=== PATIENT | female | born 1955 | race Caucasian/White ===

== ENCOUNTER 2017-06-12 10:22 | Outpatient (RCR) | payer BC ==
[2017-06-04 13:27] LABS: PLATELET COUNT, AUTOMATED 241 K/uL (150-450)
[2017-06-04 15:55] VITALS: BP 148/85
[~2017-06-12 10:22] MED LIST: ALLO100T70 PO; AMBIEN; ASPI-1471 PO; ATOR10TA24 PO; ATOR10TA65 PO; AVAPRO; BUPXL150 PO; BUTA1CAP36 PO; CALC200T27 PO; CEFU500T50 PO; CLOP75TA43 PO; DARVOCET; EFFEXOR; ESCI20TA38 PO; FEXO180T74 PO; FLU150 FT; FLU20 PO; GUAI-545 PO; HCTZ; HYDR-2966 PO; HYDR-385 PO; IPRA15SP7 NS; KET10 PO; LACT1CAP9 PO; LEVO150T72 PO; LEVO150T78 PO; LEVOXYL; LISI-1 PO; LISI-362 PO; LISI20TA29 PO; LOR1 PO; LORA-1081 PO; LORA-1455 PO; METO-253 PO; METO200T33 PO; MULT-820 PO; OMEG500C7 PO; ONDA4TAB PO; OXY5 PO; OXYC5TAB38 PO; PANT40TA65 PO; PER PO; POLY119P24 PO; PRA20 PO; PRAV40TA78 PO; PRED-1 PO; PRED20TA6 PO; PYRI100T59 PO; RANI-325 PO; RANI75TA5 PO; SCOT TD; TOPROL; TRA50 PO; TRAM-420 PO; TRAMADOL; TRIA-19 PO; TRIA1CAP85 PO; VENL37.594 PO; VER40 PO; VERA120T14 PO; VYTORIN; XANAX; [UNRECOGNIZED DRUG - CODE] PO; [UNRECOGNIZED DRUG - OTHER]
[2017-06-12] MEDS ORDERED: METF-411 PO (10:33)
[2017-06-12] MEDS ORDERED: LOSA-51 PO (10:33)
[2017-06-12] MEDS ORDERED: ESCI10TA8 PO (10:33)
--- NOTE | 2017-06-12 17:08 | ONCOLOGY FOLLOW UP NOTE ---
EVENT DATE: June 12, 2017 DIAGNOSES 1. 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 2. Hypertension. 3. Hypercholesterolemia. 4. Migraine. 5. History of cerebrovascular accident on aspirin. CHIEF COMPLAINT The patient is here today for followup of her right ovarian endometrioid adenocarcinoma. ONCOLOGY HISTORY The patient is a 62-year-old female who presented with pain in the right lower quadrant of the abdomen. The patient has been seen by her system analyst who noticed a mass in the right lower quadrant. She had a CT of the abdomen and pelvis done on April 24, 2014, which revealed 17.5 mass with diverticulosis, small ascites, and lymphadenopathy. The patient ended up having debulking surgery with total abdominal hysterectomy, bilateral salpingo-oophorectomy, and pelvic aortic lymphadenectomy and omentectomy done on May 08, 2014. Pathology came back positive from the right ovary for 18 cm endometrioid adenocarcinoma, FIGO grade 1. From the left ovary, there was 6.5 cm atypical proliferation ( borderline seromucinous tumor). Appendectomy revealed metastatic endometrioid carcinoma involving the appendiceal wall similar to the right ovarian primary. Omentum was negative for malignancy. The uterus and cervix with the hysterectomy were negative for malignancy. Five lymph nodes from the left pelvic dissection, 6 lymph nodes from the right pelvic dissection, and 4 lymph nodes from the paraaortic dissection all came back negative for malignancy. Tumor was staged as a stage IIIB (pT3b pN0 pMna) from the right endometrioid ovarian carcinoma, while, from the left ovarian borderline ovarian carcinoma, the stage was stage IIA (pT2a pN0 pMna). The patient started adjuvant chemotherapy with carboplatin and Taxol on June 08, 2014. The patient completed six cycles of chemotherapy with carboplatin and Taxol on September 21, 2014. HISTORY OF PRESENT ILLNESS Patient is here today for followup of her right ovarian endometrioid carcinoma. She has some sweating lately. She has also shortness of breath. She has pain in her legs bilaterally. She has also occasional headache. Patient has been evaluated lately for raised transaminases. PAST MEDICAL HISTORY 1. Hypertension. 2. Cerebrovascular accident. 3. Hypercholesterolemia. 4. Hypothyroidism. 5. Migraine headache. 6. Anemia. PAST SURGICAL HISTORY Debulking surgery for ovarian carcinoma on May 08, 2014. FAMILY HISTORY Mother had breast cancer and uterine cancer in her 30s and 40s. Father had prostate cancer in his 70s. Maternal aunt with breast cancer in her late 40s. SOCIAL HISTORY The patient is a . She does not have children. She works for a print shop. She denies any abuse of tobacco, alcohol, or drugs. CURRENT MEDICATIONS 1. Oxycodone 5 mg as needed q.6h. 2. Protonix 40 mg once daily. 3. Verapamil 120 mg twice daily. 4. Polyethylene glycol (Miralax) 119 mg orally daily. 5. Multivitamin once daily. 6. Lisinopril 20 mg twice daily. 7. [place] 3 fatty acid 500 mg daily. 8. Calcium citrate 200 mg daily. 9. Aspirin 81 mg daily. 10. Levothyroxine 150 mcg tablet daily. ALLERGIES NSAID with upset stomach, SULFA with upset stomach. REVIEW OF SYSTEMS CONSTITUTIONAL: She has some sweating. HEENT: Ears: No tinnitus or hearing problem. Nose: No nasal discharge or epistaxis. Throat: No sore throat or mouth ulcers. Eyes: No diplopia or visual changes. RESPIRATORY: She is short winded especially on exertion. CARDIOVASCULAR: No chest pain, orthopnea, or paroxysmal nocturnal dyspnea (PND) . She has edema. No palpitations. GASTROINTESTINAL: No nausea or vomiting. No diarrhea or constipation. No change in bowel movements. No heartburn or swallowing difficulties. No abdominal pain. No jaundice. No hematemesis, melena or rectal bleeding. GENITOURINARY: No hematuria or dysuria. MUSCULOSKELETAL: She has pain in her legs bilaterally. NEUROLOGICAL: She has headache. HEMATOLOGIC/LYMPHATIC: No bleeding or easy bruising. No weakness or fatigue. No enlarged lymph nodes. SKIN: No skin rash or lumps. PSYCHIATRIC: No anxiety or depression. PHYSICAL EXAMINATION GENERAL: Looks stable. Well-developed, well-nourished, and in no acute distress. VITAL SIGNS: Blood pressure 173/104, pulse 86 per minute, respirations 16 per minute, temperature 97. Pulse ox 92% on room air. HEENT: Head: Atraumatic. No sinus tenderness to palpation. Eyes: No icterus or conjunctivitis. Mouth and throat: No oral thrush or mucositis. NECK: Supple. No cervical or supraclavicular lymphadenopathy. LUNGS: Clear to auscultation and percussion bilaterally. HEART: Regular rate and rhythm. No gallops, murmurs, clicks or rubs. ABDOMEN: Soft and lax. Scar of recent surgery is noted and healed well. No masses could be appreciated. EXTREMITIES: There is mild edema bilaterally. LYMPHATICS: No peripheral lymphadenopathy. NEUROLOGICAL: Conscious, alert and oriented times three. No focal motor or sensory deficits. PSYCHIATRIC: Mood and affect appear normal. SKIN: No skin rash, bruise or purpuric eruption. DIAGNOSTIC DATA CBC showed a white count of 8, hemoglobin 15.5, hematocrit 43.7, platelets 241, 000. Chem panel totally normal except carbon dioxide 20, blood sugar 116, AST 51, ALT 73. CA-125 is normal at 20. ASSESSMENT 1. Stage IIIB (pT3b pN0 M0) right ovarian endometrioid adenocarcinoma status post debulking surgery done May 08, 2014 followed by adjuvant chemotherapy with six cycles of adjuvant chemotherapy with carboplatin and Taxol between June 08, 2014 through September 21, 2014. She is currently in complete remission. Her CA-125 is 20, which is normal and stable. Prior to her adjuvant chemotherapy her CA-125 was 74. The patient is doing very well currently. I am planning to continue followup. I will see her again in three months with CBC , chem panel and CA-125. 2. 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 No further treatment is required. 3. Elevated liver enzymes with ultrasound of the liver all suggestive of fatty liver. Her liver enzymes are mildly elevated, but stable. 4. History of cerebrovascular accident. 5. History of migraine headache. PLAN 1. Continue followup. 2. Patient to return in three months with CBC, chem panel and CA-125. 3. Patient is to contact us for any new concern or complaints. RELLD
== END 2017-08-31 ==
LOC: ONC 10:22
PROVIDERS: ATTEND Internal Medicine Hematology
DX: Z85.42 Personal history of malignant neoplasm of other parts of uterus (principal); Z92.21 Personal history of antineoplastic chemotherapy; Z86.73 Personal history of transient ischemic attack (TIA), and cerebral infarction without residual deficits; I10 Essential (primary) hypertension; E78.00 Pure hypercholesterolemia, unspecified; R06.02 Shortness of breath; Z79.899 Other long term (current) drug therapy; Z79.82 Long term (current) use of aspirin
CPT/HCPCS: 36415; 82040; 82247; 82310; 82374; 82435; 82565; 82947; 84075; 84132; 84155; 84295; 84450; 84460; 84520; 85025; 86304; 99212

== ENCOUNTER → 2017-06-26 | Outpatient (CLI) | payer BC ==
[~2017-06-26] MED LIST changes: +ESCI10TA8 PO; +LOSA-51 PO; +METF-410 PO
--- NOTE | 2017-06-26 08:30 | RADIOLOGY IMAGING REPORT ---
FACILITY: [facility] PATIENT NAME: Kristin Perera : 1955 MR: [id number] V: [id number] EXAM DATE: ORDERING PHYSICIAN: EUSEBIO VALENCIA TECHNOLOGIST: Location: [facility] Patient: Kristin Perera : 1955 Visit/Account:[id number] Date of Sevice: 06/26/2017 EXAMINATION: Head CT without intravenous contrast HISTORY: Dizziness headache stroke three years ago TECHNIQUE: Contiguous axial images were obtained from the skull base to the vertex without intraven ous contrast. Sagittal and coronal reformatted images are also submitted. Dose Lowering Technique One of the following dose optimization techniques was utilized in the performance of this exam: Autom ated exposure control; adjustment of the mA and/or kV according to the patient's size; or use of an i terative reconstruction technique. Specific details can be referenced in the facility's radiology C T exam operational policy. COMPARISON: August 21, 2013 FINDINGS: Brain volume: Normal. Ventricles: Normal. Acute ischemic changes: There is a wedge-shaped area of decreased attenuation in the peripheral post erior left parietal occipital lobe with no significant mass effect on the adjacent atria of the left lateral ventricle. This likely represents an old watershed type infarct. Hemorrhage: None. Masses / edema: None. Griggs-white: Negative. White matter: Normal. Vessels: Negative. Extra-axial: Negative. Calvarium / scalp: Negative. Skull base / visualized face: Negative. Visualized sinuses / orbits: There are small air-fluid levels in the maxillary sinuses bilaterally a nd a mucous retention cyst versus other polypoid lesion in the left maxillary sinus IMPRESSION: There is a wedge-shaped area of decreased attenuation the peripheral posterior left parietal occipita l lobe with no associated mass effect on the adjacent atria of the left lateral ventricle. This like ly represents an old watershed type infarct. If patient does have acute symptoms however an MR of th e brain with and without contrast is recommended for further evaluation and to exclude acute ischemia and/or a mass lesion Small air-fluid levels in the maxillary sinuses bilaterally suggestive of acute sinusitis Small mucous retention cyst versus other polypoid lesion in the left maxillary sinus Report Dictated By: Silvia Veras MD at 06/26/2017 8:20 AM Report E-Signed By: Silvia Veras MD at 06/26/2017 8:26 AM [id number]:[email or web address]
--- NOTE | 2017-06-26 15:55 | RADIOLOGY IMAGING REPORT ---
FACILITY: [facility] [place] PATIENT NAME: ELEANOR RITCHIE : [id number] MR: [id number] V: [id number] EXAM DATE: [id number] ORDERING PHYSICIAN: EUSEBIO VALENCIA TECHNOLOGIST: Sandi Zamarripa PROCEDURE:BILATERAL DIGITAL SCREENING MAMMOGRAM WITH CAD ASSISTED INTERPRETATION & 3D TOMOSYNTHESIS COMPARISON:Prior mammograms 03/06/15, 02/27/15, 09/28/13. INDICATIONS:SCREENING FINDINGS: Moderately dense mildly heterogeneous fibroglandular tissue is seen throughout the breasts. The parenchymal pattern has remained stable allowing for difference in mammographic technique & patient positioning. There is no evidence of malignant appearing mass, malignant appearing calcifications or other secondary sign of malignancy in either breast. DIAGNOSTIC CATEGORY 1--NEGATIVE. RECOMMENDATIONS: ROUTINE MAMMOGRAM AND CLINICAL EVALUATION. IMPRESSION: BIRADS 1: Negative No significant abnormality is seen. Dictated by: Silvia Veras M.D. on 06/26/2017 at 10:09 Transcribed by: LAVELLE on 06/26/2017 at 10:23 Approved by: Silvia Veras M.D. on 06/26/2017 at 15:54 [facility]
== END ==
LOC: MAMO 06:05
PROVIDERS: ATTEND Family Medicine
DX: Z12.31 Encounter for screening mammogram for malignant neoplasm of breast (principal); J32.0 Chronic maxillary sinusitis; R94.02 Abnormal brain scan
CPT/HCPCS: 70450; 77063; 77067

== ENCOUNTER 2017-09-17 10:26 | Outpatient (RCR) | payer BC ==
[2017-09-11 10:29] VITALS: BP 147/93
[2017-09-11 10:44] LABS: PLATELET COUNT, AUTOMATED 232 K/uL (150-450)
[~2017-09-17 10:26] MED LIST changes: -METF-410 PO; +METF-411 PO
[2017-09-17 10:40] VITALS: BP 156/98
--- NOTE | 2017-09-17 16:16 | ONCOLOGY FOLLOW UP NOTE ---
EVENT DATE: September 17, 2017 DIAGNOSES 1. Stage IIIB ([id number]) right ovarian endometrioid adenocarcinoma. 2. Hypertension. 3. Hypercholesterolemia. 4. Migraine. 5. History of cerebrovascular accident on aspirin. CHIEF COMPLAINT The patient is here today for followup of her right ovarian endometrioid adenocarcinoma. ONCOLOGY HISTORY The patient is a 62-year-old female who presented with pain in the right lower quadrant of the abdomen. The patient has been seen by her cracker sprayer who noticed a mass in the right lower quadrant. She had a CT of the abdomen and pelvis done on April 24, 2014, which revealed 17.5 mass with diverticulosis, small ascites, and lymphadenopathy. The patient ended up having debulking surgery with total abdominal hysterectomy, bilateral salpingo-oophorectomy, and pelvic aortic lymphadenectomy and omentectomy done on May 08, 2014. Pathology came back positive from the right ovary for 18 cm endometrioid adenocarcinoma, FIGO grade 1. From the left ovary, there was 6.5 cm atypical proliferation ( borderline seromucinous tumor). Appendectomy revealed metastatic endometrioid carcinoma involving the appendiceal wall similar to the right ovarian primary. Omentum was negative for malignancy. The uterus and cervix with the hysterectomy were negative for malignancy. Five lymph nodes from the left pelvic dissection, 6 lymph nodes from the right pelvic dissection, and 4 lymph nodes from the paraaortic dissection all came back negative for malignancy. Tumor was staged as a stage IIIB (pT3b pN0 pMna) from the right endometrioid ovarian carcinoma, while, from the left ovarian borderline ovarian carcinoma, the stage was stage IIA (pT2a pN0 pMna). The patient started adjuvant chemotherapy with carboplatin and Taxol on June 08, 2014. The patient completed six cycles of chemotherapy with carboplatin and Taxol on September 21, 2014. HISTORY OF PRESENT ILLNESS Patient is here today for followup of her right ovarian endometrioid carcinoma. She has some sweating sometimes. She has exertional shortness of breath. She has some vague pain in the right lower quadrant of the abdomen sometimes. She has some symptoms suggestive of urinary tract infection currently. She has occasional headache. PAST MEDICAL HISTORY 1. Hypertension. 2. Cerebrovascular accident. 3. Hypercholesterolemia. 4. Hypothyroidism. 5. Migraine headache. 6. Anemia. PAST SURGICAL HISTORY Debulking surgery for ovarian carcinoma on May 08, 2014. FAMILY HISTORY Mother had breast cancer and uterine cancer in her 30s and 40s. Father had prostate cancer in his 70s. Maternal aunt with breast cancer in her late 40s. SOCIAL HISTORY The patient is a . She does not have children. She works for a print shop. She denies any abuse of tobacco, alcohol, or drugs. CURRENT MEDICATIONS 1. Oxycodone 5 mg as needed q.6h. 2. Protonix 40 mg once daily. 3. Verapamil 120 mg twice daily. 4. Polyethylene glycol (Miralax) 119 mg orally daily. 5. Multivitamin once daily. 6. Lisinopril 20 mg twice daily. 7. [place] 3 fatty acid 500 mg daily. 8. Calcium citrate 200 mg daily. 9. Aspirin 81 mg daily. 10. Levothyroxine 150 mcg tablet daily. ALLERGIES NSAID with upset stomach, SULFA with upset stomach. REVIEW OF SYSTEMS CONSTITUTIONAL: The patient has some sweating. HEENT: Ears: No tinnitus or hearing problem. Nose: No nasal discharge or epistaxis. Throat: No sore throat or mouth ulcers. Eyes: No diplopia or visual changes. RESPIRATORY: She has shortness of breath. CARDIOVASCULAR: No chest pain, orthopnea, or paroxysmal nocturnal dyspnea (PND) . She has edema. No palpitations. GASTROINTESTINAL: No nausea or vomiting. No diarrhea or constipation. No change in bowel movements. No heartburn or swallowing difficulties. She has right lower quadrant abdominal pain No jaundice. No hematemesis, melena or rectal bleeding. GENITOURINARY: She has symptoms suggestive of a urinary tract infection. MUSCULOSKELETAL: She has pain in her legs bilaterally. NEUROLOGICAL: She has occasional headache. HEMATOLOGIC/LYMPHATIC: No bleeding or easy bruising. No weakness or fatigue. No enlarged lymph nodes. SKIN: No skin rash or lumps. PSYCHIATRIC: No anxiety or depression. PHYSICAL EXAMINATION GENERAL: Looks stable. Well-developed, well-nourished, and in no acute distress. VITAL SIGNS: Blood pressure 156/98, pulse 93 per minute, respirations 16 per minute, temperature 97.4. Pulse ox 93% on room air. HEENT: Head: Atraumatic. No sinus tenderness to palpation. Eyes: No icterus or conjunctivitis. Mouth and throat: No oral thrush or mucositis. NECK: Supple. No cervical or supraclavicular lymphadenopathy. LUNGS: Clear to auscultation and percussion bilaterally. HEART: Regular rate and rhythm. No gallops, murmurs, clicks or rubs. ABDOMEN: Soft and lax. Scar of recent surgery is noted and healed well. No masses could be appreciated. EXTREMITIES: There is mild edema bilaterally. LYMPHATICS: No peripheral lymphadenopathy. NEUROLOGICAL: Conscious, alert and oriented times three. No focal motor or sensory deficits. PSYCHIATRIC: Mood and affect appear normal. SKIN: No skin rash, bruise or purpuric eruption. DIAGNOSTIC DATA CBC showed a white count of 8.7, hemoglobin 16.4, hematocrit 46.9, platelets 232 ,000. Chem panel totally normal except carbon dioxide 19, blood sugar 136, AST 146, ALT 176, total protein 8.5. CA-125 is normal at 13. ASSESSMENT 1. Stage IIIB (pT3b pN0 M0) right ovarian endometrioid adenocarcinoma status post debulking surgery done May 08, 2014 followed by adjuvant chemotherapy with six cycles of adjuvant chemotherapy with carboplatin and Taxol between June 08, 2014 through September 21, 2014. She is currently in complete remission. Her CA-125 is 13, which is normal and stable. Prior to her adjuvant chemotherapy her CA-125 was 74. I am planning to see her again in four months with CBC, chem panel and CA-125. 2. 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 No further treatment is required. 3. Elevated liver enzymes which are getting worse. Ultrasound of the liver was suggestive of fatty liver, but with deterioration of her liver enzymes,I am planning to get a CT abdomen and pelvis with IV and oral contrast for further evaluation. 4. History of cerebrovascular accident. 5. History of migraine headache. PLAN 1. CT abdomen and pelvis with IV and oral contrast. 2. UA and culture and sensitivity. 3. Patient to return in one week for further evaluation and management. 4. Patient is to contact us for any new concern or complaints. MTDD
[2017-09-18] MEDS ORDERED: IOPAMIDOL 76% 100 ML INFUS BTL 100 ML ONE (14:30)
[2017-09-18] MEDS ORDERED: DIATRIZOATE MEGL/DIATRIZOA SOD 367 MG/ML SOLN ONE ×2 (14:35→14:37)
--- NOTE | 2017-09-18 17:08 | RADIOLOGY IMAGING REPORT ---
FAC[place]: [facility] [place] PATIENT NAME: Krisitn Perera : 1955 MR: [id number] V: [id number] EXAM DATE: ORDERING PHYSICIAN: DONTAE MACE TECHNOLOGIST: Location: [facility] Patient: Kristin Perera : 1955 Visit/Account:[id number] Date of Sevice: 09/18/2017 ABDOMEN/PELVIS WITH CONTRAST Provided history: Ovarian cancer. Other liver enzymes. Additional pertinent history: none TECHNIQUE: Spiral scan was obtained from the lower chest through the symphysis with intravenous cont rast Contrast dose: 85 mL Isovue 370 intravenously. Source images were reformatted in the coronal and sagittal planes. Additional series performed today: none One of the following dose optimization techniques was utilized in the performance of this exam: Autom ated exposure control; adjustment of the mA and/or kV according to the patient's size; or use of an i terative reconstruction technique. Specific details can be referenced in the facility's radiology CT exam operational policy. COMPARISON STUDIES: CT 04/24/14 FINDINGS: Lower chest: Negative Liver/biliary: Advanced diffuse hepatic steatosis. Smooth surface. No focal hepatic lesion. Gallbl adder and bile ducts negative. No vascular thromboses. Pancreas: Negative Spleen: Negative Adrenal glands: Negative Kidneys / ureters / bladder / genitourinary / retroperitoneum: Kidneys, ureters and bladder are lachelle l. Interim removal large mass from the pelvis as well as hysterectomy. Currently, no pelvic mass an d no free fluid. No adenopathy. Bowel / peritoneum / mesenteries: Large diverticula of the sigmoid colon. No signs of diverticulitis . No free fluid and no free air. Small bowel negative. Scattered small mesenteric lymph nodes are very likely benign. There are no measurable peritoneal based nodules. There is however indistinct nodular infiltration o f the midline greater omentum concerning for potential malignancy though could merely reflect scar fr om the prior surgery. There is no ascites. Vessels: Moderate calcified plaque lower abdominal aorta. No aneurysm. Lymph nodes: negative Body wall: Small noninflamed fat-containing lower anterior abdominal wall hernia just below the umbil icus. No bowel herniation. Bones: Stable enostosis left capital femoral epiphysis. No concerning lytic or blastic bone lesion. Remodeling posterior right rib fracture new from prior, benign in appearance. IMPRESSION: 1. The only finding concerning for potential metastatic ovarian cancer is indistinct reticular nodul ar infiltration of the midline greater omental fat. Follow-up imaging warranted. 2. No evidence of metastatic disease to the liver. There is advanced diffuse hepatic steatosis. 3. Additional chronic benign findings per above. Report Dictated By: Ashkan Boyd MD at 09/18/2017 4:53 PM Report E-Signed By: Ashkan Boyd MD at 09/18/2017 5:04 PM WSN:[email or web address]
[2017-09-21] MEDS ORDERED: LEVO-85 PO (11:00)
== END 2017-11-06 11:05 | disposition home or self-care (01) ==
LOC: ONC 10:26
PROVIDERS: ATTEND Internal Medicine Hematology
DX: C56.1 Malignant neoplasm of right ovary (principal); Z92.21 Personal history of antineoplastic chemotherapy; R79.89 Other specified abnormal findings of blood chemistry; I10 Essential (primary) hypertension; E78.00 Pure hypercholesterolemia, unspecified; Z86.73 Personal history of transient ischemic attack (TIA), and cerebral infarction without residual deficits; Z79.899 Other long term (current) drug therapy; R06.02 Shortness of breath; K76.0 Fatty (change of) liver, not elsewhere classified
CPT/HCPCS: 36415; 74177; 81001; 85025; 86304; 87077; 87088; 87186; 99212; Q9967; 82040; 82247; 82310; 82374; 82435; 82565; 82947; 84075; 84132; 84155; 84295; 84450; 84460; 84520

== ENCOUNTER 2017-11-18 10:00 | Outpatient (RCR) | payer BC ==
[~2017-11-18 10:00] MED LIST changes: +LEVO-85 PO; -METF-411 PO; +METF-450 PO
[2017-11-18 10:02] VITALS: BP 159/96
[2017-11-18] MEDS ORDERED: MOM PO (10:37)
[2017-11-18] MEDS ORDERED: LEVO-85 PO (10:51)
--- NOTE | 2017-11-18 11:44 | Oncology Progress Note ---
History of Present Illness Evaluation Evaluation Date: Nov 18, 2017 Evaluation Time: 10:00 Primary Care Provider Primary Care Provider: Tabitha Pepe MD Accompanied by Accompanied by: Self Last seen by : Rudy 09/17/17 Chief Complaint Chief Complaint follow up of her right ovarian endometrioid adenocarcinoma Oncology History Oncology History The patient is a 62-year-old female who presented with pain in the right lower quadrant of the abdomen. The patient has been seen by her plumbing hardware assembler who noticed a mass in the right lower quadrant. She had a CT of the abdomen and pelvis done on April 24, 2014, which revealed 17.5 mass with diverticulosis, small ascites, and lymphadenopathy. The patient ended up having debulking surgery with total abdominal hysterectomy, bilateral salpingo-oophorectomy, and pelvic aortic lymphadenectomy and omentectomy done on May 08, 2014. Pathology came back positive from the right ovary for 18 cm endometrioid adenocarcinoma, FIGO grade 1. From the left ovary, there was 6.5 cm atypical proliferation (b orderline seromucinous tumor). Appendectomy revealed metastatic endometrioid carcinoma involving the appendiceal wall similar to the right ovarian primary. Omentum was negative for malignancy. The uterus and cervix with the hysterectomy were negative for malignancy. Five lymph nodes from the left pelvic dissection, 6 lymph nodes from the right pelvic dissection, and 4 lymph nodes from the paraaortic dissection all came back negative for malignancy. Tumor was staged as a stage IIIB (pT3b pN0 pMna) from the right endometrioid ovarian carcinoma, while, from the left ovarian borderline ovarian carcinoma, the stage was stage IIA (pT2a pN0 pMna). The patient started adjuvant chemotherapy with carboplatin and Taxol on June 08, 2014. The patient completed six cycles of chemotherapy with carboplatin and Taxol on September 21, 2014. Treatment Treatment The patient started adjuvant chemotherapy with carboplatin and Taxol on June 08, 2014. The patient completed six cycles of chemotherapy with carboplatin and Taxol on September 21, 2014. 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 s/p six cycles of chemotherapy with carboplatin and Taxol on September 21, 2014. Patient presents to cancer center for management of her diagnosis and some chronic symptoms. She reports reports having migraines, stomach upset triggered by excessive eating, she is now been trying acupuncture and gluten free diet, along with some dominican herbal remedies. She does still have anxiety and some depression, her recently . I recommended for her to see a counsellor she agrees with the plan. She is otherwise doing relatively well, except for Advanced diffuse hepatic steatosis showed on her recent imaging 09/2017 CT (abd/pelvis) and 11/2017 PET showed no malignant patterns. Patient is AAOX4, hemodynamically stable and afebrile, denies any cardiac type chest pain, no fevers at home, no night sweats, no chills, no spontaneous bleeding, no nausea, vomiting, diarrhea, occasional constipation, no dark stools .Oral intake appetite ok, patient has maintained baseline weight since initiating treatment, reports no changes in bowel or bladder pattern, no PND, no dizziness, or headaches nor blurry vision. Keeps active and on the go over 50% of the day. Significant PMHx of elevated liver enzymes which are getting worse; History of cerebrovascular accident; History of migraine headache. Living Conditions Lives with her bother and nephew Social/Occupational History Social History: Social History This is a 62 Yr old White female, she is M and has [] Children Hx Smoking: No Smoking Status: Never Smoker Exposure to Second Hand Smoke?: No Allergies & Medications Allergies: Coded Allergies: NSAIDS (Non-Steroidal Anti-Inflamma (Verified Allergy, Mild, GI DISTRESS, 02/14/15) Sulfa (Sulfonamide Antibiotics) (Verified Allergy, Mild, GI DISTRESS, 02/14/15) milk (Unverified Allergy, Unknown, 02/14/15) Milk Containing Products (Verified Adverse Reaction, Intermediate, NAUSEA/VOMITING, 02/14/15) Home Meds Active Scripts Magnesium Hydroxide (MILK OF MAGNESIA) 400 Mg/5 Ml Oral.susp, 400 MG PO 1-2XD for 14 Days, BOTTLE Prov:COMFORT RAINEY QUALITY CONTROL LAB TECHNICIAN-C, ONC 11/18/17 Lorazepam (ATIVAN) 0.5 Mg Tablet, 0.5 MG PO Q6H PRN for ANXIETY, #30 TAB 2 Refills Take 1 tab orally as needed for nausea or with anxiety Prov:OMAIRA REBOLLEDO QUALITY CONTROL LAB TECHNICIAN-BC, ONC 03/16/17 Hydrocodone Bit/Acetaminophen (HYDROCODON-ACETAMINOPHEN 5-325) 1 Each Tablet, 1 EACH PO Q4H PRN for PAIN, #30 Prov:OMAIRA REBOLLEDO Jimmy QUALITY CONTROL LAB TECHNICIAN-BC, ONC 08/23/14 Reported Medications Levofloxacin 500 Mg Tab (LEVAQUIN 500 MG TAB) 500 Mg Tablet, 250 MG PO DAILY, TAB daily for 10 days 11/18/17 Losartan/Hydrochlorothiazide (LOSARTAN-HCTZ 50-12.5 MG TAB) 1 Each Tablet, 1 EACH PO QDAY 06/12/17 Atorvastatin Calcium (LIPITOR) 10 Mg Tablet, 1 TAB PO QDAY, TAB 06/26/16 Hydrochlorothiazide (HYDROCHLOROTHIAZIDE) Unknown Strength Tablet, 1 TAB PO QDAY, TAB 11/22/15 Multivitamin (MULTIVITAMINS) 1 Each Tablet, 1 EACH PO DAILY 06/05/14 Independence-3 Fatty Acids (FISH OIL) 500 Mg Capsule, 500 MG PO DAILY, CAPSULE 11/24/13 Calcium Citrate (CALCIUM CITRATE) 200 Mg Tablet, 200 MG PO DAILY 11/24/13 Aspirin (ASPIR 81) 81 Mg Tablet.dr, 81 MG PO BID, TAB 11/24/13 Levothyroxine Sodium (LEVOTHYROXINE SODIUM) 150 Mcg Tablet, 150 MCG PO QDAY 08/21/13 Discontinued Reported Medications Levofloxacin 500 Mg Tab (LEVAQUIN 500 MG TAB) 500 Mg Tablet, 500 MG PO DAILY, T AB DAILY X 5 DAYS 09/21/17 Review of Systems Constitution: Positive for Appetite/Weight Change HEENT: EYES: Vision Change Gastrointestinal: Nausea, Abdominal Pain, Other Gentiourinary: Other Musculoskeletal: Bone Pain Hematological: Fatigue Psychiatric: Anxiety, Depression, Other Vital Signs Vital Signs Temperature: 96.8 Pulse: 89 BP Systolic: 159 BP Diastolic: 96 Respiratory Rate: 16 O2 SAT: 94 O2 Delivery: Room Air Height (feet) 5 Height (inches) 3.00 Weight lb: 207 Weight oz: 2.0 Weight Kg (Mak): 93.95 Pain: 0 ECOG- 0 Physical Exam General: Looks Stable, Well Developed, Well Nourished, Acute Distress HEENT: HEAD:Atraumatic Neck: Supple Lungs: Clear to Auscultation Heart: Regular Rate and Rhythm Abdomen: Soft and Nontender Extremities: Other Psychiatric: Mood appears normal, Affect appears normal Skin: No Skin Rashes, No Bruising, No Purpura, No Moist Desquamation, No Dry Desquamation, No Errythema, No Mild Errythema, No Moderate Errythema, No Severe Errythema, No Induration, No Other Breast: No No Masses, No No Nipple Discharge, No No Skin Changes, No Other Assessment and Plan Assessment and Plan Kristin Jaramillo is a 62 year old woman who has Stage IIIB ([id number]) right ovarian endometrioid adenocarcinoma, 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 s/p six cycles of chemotherapy with carboplatin and Taxol on September 21, 2014. Patient presents to cancer center for management of her diagnosis and some chronic symptoms. She reports reports having migraines, stomach upset triggered by excessive eating, she is now been trying acupuncture and gluten free diet, along with some dominican herbal remedies. She does still have anxiety and some depression, her recently . I recommended for her to see a counsellor she agrees with the plan. She is otherwise doing relatively well, except for Advanced diffuse hepatic steatosis showed on her recent imaging 09/2017 CT (abd/pelvis) and 11/2017 PET showed no malignant patterns. DIAGNOSTIC DATA Within acceptable parameters except elevated liver enzymes. Assessment/Plan 1. 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 The patient received six courses of adjuvant chemotherapy with carboplatin and Taxol between June 08, 2014 through September 21, 2014. Tumor marker with CA-125 dropped from 74 to 18 to 13, then 16 and now 18. The patient is doing very well post treatment with exception of her emotional state. She will follow in January with CBC, chem panel and CA-125. She continues to be in complete remission. 2. Left ovarian borderline seromucinous tumor, stage IIIA ([id number]) and no further treatment required, but the patient could benefit from the adjuvant treatment for her right ovarian endometrioid adenocarcinoma. 3. Positive family history for breast cancer and uterine cancer in her mother, sister and maternal aunt. BRCA1 and BRCA2 gene analysis were negative. 4. Elevated liver enzymes which are getting worse. Ultrasound of the liver was suggestive of fatty liver, Advanced diffuse hepatic steatosis showed on her recent imaging 09/2017 CT (abd/pelvis) and 11/2017 PET showed no malignant patterns. She is currently on a gluten free, and low fat diet, taking Tagamet, encouraged to increase exercise, and portion controlled. Hypertension, on treatment. 5. History of cerebrovascular accident. 6. Migraine headache. 7. Depression/ anxiety-She is still coping with the of her , she is doing well overall, currently taking Ativan for anxiety, oxycodone in the am for pain, seeing an maintenance team leader. encouraged patient to increase exercise activity, and will get her a referral to counsellor from [facility]. PLAN 1. Appointment with Dr. Grant in January 2018. Rn to schedule times and notify Patient. 2. The patient to return in January with CBC, chem panel, CA-125. 3. Recommend Counsellor appointment from [facility]. Rn to notify patient of appointment times. 4. patient to follow up with GLUE SIZE MACHINE OPERATOR and PCP prior to visit with Dr. Gomez. 5. Levaquin 250mg Po x 10 days for UTI. 6. Continue to monitor liver enzymes with labs due in January. 7. The patient to contact us for any new concerns or complaints. -Education, patient instructed to go to ER immediately and, or call Clinic if any Shortness of Breath, Temp >/=100.4, fevers, chills, cardiac type chest pain, bleeding, excessive bruising, headaches, blurry vision, dizziness, abdominal pain, difficulty swallowing, and pain unrelieved by medication, skin rashes, oozing wounds. TIME SPENT: 30 minutes 25 > minutes includes but not limited to discussion, counselling and co-ordination~ of care. Discussion with other health care providers, record review, review of lab work, diagnostic tests. Plan discussed extensively with patient. All the questions answered today. Thank you for the opportunity to be involved in the care of Kristin Jaramillo. Billing Level: Return visit 4 COMFORT RAINEY, ONC Nov 18, 2017 11:44
== END 2018-01-06 10:29 | disposition home or self-care (01) ==
LOC: ONC 10:00
PROVIDERS: ATTEND Nurse Practitioner Family
DX: C56.1 Malignant neoplasm of right ovary (principal); C78.5 Secondary malignant neoplasm of large intestine and rectum; Z80.3 Family history of malignant neoplasm of breast; Z80.8 Family history of malignant neoplasm of other organs or systems; I10 Essential (primary) hypertension; R74.8 Abnormal levels of other serum enzymes; G43.909 Migraine, unspecified, not intractable, without status migrainosus; F32.9 Major depressive disorder, single episode, unspecified; Z79.899 Other long term (current) drug therapy; Z92.21 Personal history of antineoplastic chemotherapy
CPT/HCPCS: 99212

== ENCOUNTER → 2018-02-25 | Outpatient (CLI) | payer BC ==
[~2018-02-25] MED LIST changes: +BARIUM SULFATE 176 GM BTL PO ONE; +BARIUM SULFATE 340 GM POWD ONE; +MOM PO; -RANI75TA5 PO; +RANI75TA51 PO; +TRAZ50TA34 PO
--- NOTE | 2018-02-25 15:27 | RADIOLOGY IMAGING REPORT ---
FACILITY: [facility] - [place] PATIENT NAME: Kristin Perera : 1955 MR: [id number] V: [id number] EXAM DATE: ORDERING PHYSICIAN: EUSEBIO VALENCIA TECHNOLOGIST: Location: [facility] - [place] Patient: Kristin Perera : 1955 Visit/Account:[id number] Date of Sevice: 02/25/2018 Exam type: UPPER GI SERIES W/O AIR History: GERD, cough, bronchitis to 3 times per year Comparison: None. Findings: Double contrast upper GI series was performed with thick and thin barium. There is a moderate size h iatal hernia with mild narrowing at the lower esophageal sphincter. There was a large amount of saul roesophageal reflux observed. There is mild mucosal irregularity along the anterior wall the cervica l esophagus. No abnormality of the stomach duodenal bulb or duodenal C-loop was seen. The Fluorosco py dose area product was 1037.51 micro-Griggs per meter squared IMPRESSION: 1. Moderate size hiatal hernia with a large amount of gastric esophageal reflux. There is mild narr owing at the lower esophageal sphincter and a mild mucosal irregularity along the anterior wall the c ervical esophagus. Endoscopy may be helpful Report Dictated By: Silvia Veras MD at 02/25/2018 3:21 PM Report E-Signed By: Silvia Veras MD at 02/25/2018 3:24 PM WSN:[email or web address]
== END ==
LOC: RAD 01:36
PROVIDERS: ATTEND Family Medicine
DX: K21.9 Gastro-esophageal reflux disease without esophagitis (principal); K44.9 Diaphragmatic hernia without obstruction or gangrene
CPT/HCPCS: 74240

== ENCOUNTER 2018-03-04 08:00 | Outpatient (RCR) | payer BC ==
[2018-02-18 08:35] VITALS: BP 159/104
[~2018-03-04 08:00] MED LIST changes: -BARIUM SULFATE 176 GM BTL PO ONE; -BARIUM SULFATE 340 GM POWD ONE
--- NOTE | 2018-03-04 08:43 | RADIOLOGY IMAGING REPORT ---
FACILITY: [facility] - [place] PATIENT NAME: Kristin Perera : 1955 MR: [id number] V: [id number] EXAM DATE: ORDERING PHYSICIAN: COMFORT RAINEY TECHNOLOGIST: Location: [facility] - [place], [place] Patient: Kristin Perera : 1955 Visit/Account:[id number] Date of Sevice: 03/04/2018 ABDOMEN/PELVIS WITH CONTRAST HISTORY: Restaging ovarian cancer, fatty liver TECHNIQUE: CT abdomen and pelvis with intravenous contrast. Contiguous axial images of the abdomen and pelvis was performed from the lung bases to the symphysis pubis. One of the following dose optimization techniques was utilized in the performance of this exam: Autom ated exposure control; adjustment of the mA and/or kV according to the patient's size; or use of an i terative reconstruction technique. Specific details can be referenced in the facility's radiology C T exam operational policy. CONTRAST: 75 cc of Isovue 370 COMPARISON: CT scan 09/18/2017 FINDINGS: Visualized lung bases: Subtle reticular prominence right middle lobe is stable. Hepatobiliary: There is fatty infiltration of the liver. No evidence for hepatic metastatic disease . Gallbladder and bile ducts are unremarkable. Spleen: Negative. Adrenals: Negative. Kidneys/: Uterus is absent. Pancreas: Negative. GI: There is no bowel obstruction or focal inflammation. Barium is noted in several diverticula in the sigmoid colon . Small hiatal hernia is noted. Vessels/spaces/nodes: Significant atherosclerotic calcifications noted. Reidentified is mild infiltration of the central mesentery image 68 which is stable. Bones/soft tissues: Small periumbilical hernia is noted with fat in the defect, unchanged IMPRESSION: 1. No significant change from prior exam. Small area of infiltration of the mesenteric fat is stabl e from prior examination. Otherwise, no concerning sites of disease. 2. Other chronic findings described above. Report Dictated By: Deshawn Garza MD at 03/04/2018 8:22 AM Report E-Signed By: Deshawn Garza MD at 03/04/2018 8:39 AM WSN:[email or web address]
== END 2018-03-04 18:00 | disposition home or self-care (01) ==
LOC: ONC 08:00
PROVIDERS: ATTEND Nurse Practitioner Family
DX: C56.1 Malignant neoplasm of right ovary (principal); C78.5 Secondary malignant neoplasm of large intestine and rectum; Z80.3 Family history of malignant neoplasm of breast; Z80.8 Family history of malignant neoplasm of other organs or systems; I10 Essential (primary) hypertension; R74.8 Abnormal levels of other serum enzymes; G43.909 Migraine, unspecified, not intractable, without status migrainosus; F32.9 Major depressive disorder, single episode, unspecified; Z79.899 Other long term (current) drug therapy; Z92.21 Personal history of antineoplastic chemotherapy; K76.0 Fatty (change of) liver, not elsewhere classified
CPT/HCPCS: 74177; Q9967

== ENCOUNTER → 2018-05-27 | Outpatient (CLI) | payer BC ==
[~2018-05-27] MED LIST changes: -VERA120T14 PO; +VERA120T76 PO
--- NOTE | 2018-05-27 16:04 | RADIOLOGY IMAGING REPORT ---
[place] [facility] [place] Kristin Perera : 1955 MR: [id number] V: [id number] EXAM DATE: ORDERING PHYSICIAN: EUSEBIO VALENCIA TECHNOLOGIST: Location: [facility] [place] Patient: rKistin Perera : 1955 Visit/Account:[id number] Date of Sevice: 05/27/2018 THYROID HISTORY: Elevated PTH COMPARISON: September 28, 2013 FINDINGS: SIZE: Right lobe: 3.8 x 1.7 x 1.7 cm Left lobe: 3 x 1.7 x 1.6 cm Isthmus: 4 mm PARENCHYMA: Diffusely heterogeneous bilaterally NODULES: Right lobe: * None discrete. Left lobe: * None discrete. Isthmus: * None discrete. VASCULARITY: Decreased bilaterally ADDITIONAL FINDINGS: None. IMPRESSION: Both lobes of thyroid gland appear diffusely heterogeneous similar to the prior examination with decr eased vascularity REFERENCE: 2015 [place] [employer] Management Guidelines for Adult Patients with Thyroid Nodules and D ifferentiated Thyroid Cancer: The [place] [employer] Guidelines Task Force on Thyroid Nodul es and Differentiated Thyroid Cancer. SONOGRAPHIC PATTERNS: * Benign: Purely cystic nodules (no solid component); estimated risk of malignancy <1 percent; no bi opsy recommended. * Very Low Suspicion: Spongiform or partially cystic nodules without any of the sonographic features described in low, intermediate, or high suspicion patterns; estimated risk of malignancy <3 percent; consider FNA at > 2 cm (Observation without FNA is also a reasonable option). * Low Suspicion: Isoechoic or hyperechoic solid nodule, or partially cystic nodule with eccentric so lid areas, without microcalcification, irregular margin or ETE (extra-thyroidal extension), or taller than wide shape; estimated risk of malignancy 5-10 percent; recommend FNA at >1.5 cm. * Intermediate Suspicion: Hypoechoic solid nodule with smooth margins without microcalcifications, E TE (extra-thyroidal extension), or taller than wide shape; estimated risk of malignancy 10-20 percent ; recommend FNA at > 1 cm. * High Suspicion: Solid hypoechoic nodule or solid hypoechoic component of a partially cystic nodule with one or more of the following features: irregular margins (infiltrative, microlobulated), microc alcifications, taller than wide shape, rim calcifications with small extrusive soft tissue component, evidence of ETE (extra-thyroidal extension); estimated risk of malignancy >70-90 percent; recommend FNA at > 1 cm. NOTES: * Although a sonographically suspicious subcentimeter thyroid nodule without evidence of extrathyroi elian extension or sonographically suspicious lymph nodes may be observed with close sonographic follow -up rather than pursuing immediate FNA, patient age and preference may modify decision-making. A > 50% interval increase in nodule volume and/or development of new suspicious sonographic features are felt to be a valid reasons for potential re-aspiration of a nodule previously shown to have benig n FNA cytology. Report Dictated By: Silvia Veras MD at 05/27/2018 3:57 PM Report E-Signed By: Silvia Veras MD at 05/27/2018 3:59 PM WSN:[email or web address]
--- NOTE | 2018-05-27 18:06 | RADIOLOGY IMAGING REPORT ---
FACILITY: [facility] - [place] PATIENT NAME: Kristin Perera : 1955 MR: [id number] V: [id number] EXAM DATE: ORDERING PHYSICIAN: EUSEBIO VALENCIA TECHNOLOGIST: Location: [facility] [place] Patient: Kristin Perera : 1955 Visit/Account:[id number] Date of Sevice: 05/27/2018 2 VIEWS CHEST INDICATION: Short of breath. COMPARISON: 04/05/2014 FINDINGS: There is a old healed rib fracture involving the right posterior eighth rib. This is a new finding si wve 2014. If this does not fit clinically, consider CT scan for further workup. No focal confluent in filtrate. No effusion or pneumothorax. Heart size and mediastinal contours are normal. Mild degenerat harry disc disease involves the mid thoracic spine. IMPRESSION: 1. No radiographic evidence of active disease. 2. Old rib fracture deformity of the right eighth rib. This was not seen on the prior study in 2014. If this does not fit clinically, consider computed tomography of the thorax for further evaluation. Report Dictated By: Benito Gutierrez at 05/27/2018 5:58 PM Report E-Signed By: Benito Gutierrez at 05/27/2018 6:02 PM WSN:[email or web address]
== END ==
LOC: US 00:29
PROVIDERS: ATTEND Family Medicine
DX: E21.3 Hyperparathyroidism, unspecified (principal); E83.52 Hypercalcemia
CPT/HCPCS: 71046; 76536

== ENCOUNTER → 2018-08-19 | Outpatient (CLI) | payer BC ==
[~2018-08-19] MED LIST changes: +IOPAMIDOL 76% 100 ML INFUS BTL 100 ML ONE; +LISI-374 PO; -TRAZ50TA34 PO; +TRAZ50TA52 PO
--- NOTE | 2018-08-19 09:04 | RADIOLOGY IMAGING REPORT ---
FACILITY: [facility] PATIENT NAME: Kristin Perera : 1955 MR: [id number] V: [id number] EXAM DATE: ORDERING PHYSICIAN: DONTAE MACE TECHNOLOGIST: Location: [facility] - [place] Patient: Kristin Perera : 1955 Visit/Account:[id number] Date of Sevice: 08/19/2018 CT ABDOMEN PELVIS W/ CON HISTORY: Ovarian cancer; four years post surgical resection. TECHNIQUE: CT abdomen and pelvis with intravenous contrast. One of the following dose optimization techniques was utilized in the performance of this exam: Autom ated exposure control; adjustment of the mA and/or kV according to the patient's size; or use of an i terative reconstruction technique. Specific details can be referenced in the facility's radiology C T exam operational policy. CONTRAST: 75 mL Isovue-370 IV COMPARISON: 03/04/2018 FINDINGS: Visualized lung bases: Grossly unremarkable. Hepatobiliary: Negative. Spleen: Negative; several small accessory splenules. Adrenals: Punctate calcification right gland, likely sequela of old granulomatous disease, otherwise unremarkable. Pancreas: Negative. Kidneys/: Uterus and ovaries surgically absent. 0.8 x 1.2 cm soft tissue nodule within left hemip wendy, adjacent to left superior most vaginal cuff (2/121), unchanged. GI: Small sliding-type hiatal hernia. Mild sigmoid diverticulosis. Vessels/spaces/nodes: Moderately severe atherosclerosis. Aortic origin common hepatic artery, lachelle l variant. No adenopathy. No free fluid. Stable left hemipelvic soft tissue nodule as detailed abo ve. Bones/soft tissues: Sequela of prior infraumbilical ventral wall incision. Small fat-containing per iumbilical hernia, unchanged. Bilateral femoral head and left greater trochanteric bone islands. Di sc and facet degenerative changes visualized spine. No suspicious osseous lesion. IMPRESSION: 1. No significant interval change from prior exam. No findings of concern for metastatic disease to the abdomen/pelvis. 2. Chronic and/or benign-appearing changes detailed above. Report Dictated By: Roman Post MD at 08/19/2018 8:36 AM Report E-Signed By: Roman Post MD at 08/19/2018 8:58 AM WSN:[email or web address]
== END ==
LOC: CT 07:39
PROVIDERS: ATTEND Internal Medicine Hematology
DX: C56.9 Malignant neoplasm of unspecified ovary (principal)
CPT/HCPCS: 74177; Q9967

== ENCOUNTER 2018-08-20 11:16 | Outpatient (RCR) | payer BC ==
[2018-08-13 09:47] VITALS: BP 126/83
[2018-08-13 09:58] LABS: PLATELET COUNT, AUTOMATED 216 K/uL (150-450)
[~2018-08-20 11:16] MED LIST changes: -IOPAMIDOL 76% 100 ML INFUS BTL 100 ML ONE; -LISI-374 PO
[2018-08-20 11:34] VITALS: BP 147/96
[2018-08-20] MEDS ORDERED: LISI-374 PO (11:38)
--- NOTE | 2018-08-21 10:01 | EL-[facility] ONCOLOGY NOTE ---
EVENT DATE: August 20, 2018 DIAGNOSES 1. 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 2. Hypertension. 3. Hypercholesterolemia. 4. Migraine. 5. History of cerebrovascular accident on aspirin. CHIEF COMPLAINT The patient is here today for followup of her right ovarian endometrioid adenocarcinoma. ONCOLOGY HISTORY The patient is a 63-year-old female who presented with pain in the right lower quadrant of the abdomen. The patient has been seen by her de alcholizer who noticed a mass in the right lower quadrant. She had a CT of the abdomen and pelvis done on April 24, 2014, which revealed 17.5 mass with diverticulosis, small ascites, and lymphadenopathy. The patient ended up having debulking surgery with total abdominal hysterectomy, bilateral salpingo-oophorectomy, and pelvic aortic lymphadenectomy and omentectomy done on May 08, 2014. Pathology came back positive from the right ovary for 18 cm endometrioid adenocarcinoma, FIGO grade 1. From the left ovary, there was 6.5 cm atypical proliferation (borderline seromucinous tumor). Appendectomy revealed metastatic endometrioid carcinoma involving the appendiceal wall similar to the right ovarian primary. Omentum was negative for malignancy. The uterus and cervix with the hysterectomy were negative for malignancy. Five lymph nodes from the left pelvic dissection, 6 lymph nodes from the right pelvic dissection, and 4 lymph nodes from the paraaortic dissection all came back negative for malignancy. Tumor was staged as a stage IIIB (pT3b pN0 pMna) from the right endometrioid ovarian carcinoma, while, from the left ovarian borderline ovarian carcinoma, the stage was stage IIA (pT2a pN0 pMna). The patient started adjuvant chemotherapy with carboplatin and Taxol on June 08, 2014. The patient completed six cycles of chemotherapy with carboplatin and Taxol on September 21, 2014. HISTORY OF PRESENT ILLNESS Patient is here today for followup of her right ovarian endometrioid carcinoma. She is doing fine currently except for having some sweating. She has some aches in her leg sometimes. She has also migraine headaches but other than that she is stable. PAST MEDICAL HISTORY 1. Hypertension. 2. Cerebrovascular accident. 3. Hypercholesterolemia. 4. Hypothyroidism. 5. Migraine headache. 6. Anemia. PAST SURGICAL HISTORY Debulking surgery for ovarian carcinoma on May 08, 2014. FAMILY HISTORY Mother had breast cancer and uterine cancer in her 30s and 40s. Father had prostate cancer in his 70s. Maternal aunt with breast cancer in her late 40s. SOCIAL HISTORY The patient is a . She does not have children. She works for a print shop. She denies any abuse of tobacco, alcohol, or drugs. CURRENT MEDICATIONS 1. Oxycodone 5 mg as needed q.6h. 2. Protonix 40 mg once daily. 3. Verapamil 120 mg twice daily. 4. Polyethylene glycol (Miralax) 119 mg orally daily. 5. Multivitamin once daily. 6. Lisinopril 20 mg twice daily. 7. Holcomb 3 fatty acid 500 mg daily. 8. Calcium citrate 200 mg daily. 9. Aspirin 81 mg daily. 10. Levothyroxine 150 mcg tablet daily. ALLERGIES NSAID with upset stomach, SULFA with upset stomach. REVIEW OF SYSTEMS CONSTITUTIONAL: She has some sweating. HEENT: Ears: No tinnitus or hearing problem. Nose: No nasal discharge or epistaxis. Throat: No sore throat or mouth ulcers. Eyes: No diplopia or visual changes. RESPIRATORY: She has shortness of breath. CARDIOVASCULAR: No chest pain, orthopnea, or paroxysmal nocturnal dyspnea (PND). She has edema. No palpitations. GASTROINTESTINAL: No nausea or vomiting. No diarrhea or constipation. No change in bowel movements. No heartburn or swallowing difficulties. She has right lower quadrant abdominal pain No jaundice. No hematemesis, melena or rectal bleeding. GENITOURINARY: She has symptoms suggestive of a urinary tract infection. MUSCULOSKELETAL: She has pain in her legs. NEUROLOGICAL: She has migraine headaches. HEMATOLOGIC/LYMPHATIC: No bleeding or easy bruising. No weakness or fatigue. No enlarged lymph nodes. SKIN: No skin rash or lumps. PSYCHIATRIC: No anxiety or depression. PHYSICAL EXAMINATION GENERAL: Looks stable. Well-developed, well-nourished, and in no acute distress. VITAL SIGNS: Blood pressure 147/96, pulse 77 per minute, respirations 16 per minute, temperature 98 pulse ox 90% on room air. HEENT: Head: Atraumatic. No sinus tenderness to palpation. Eyes: No icterus or conjunctivitis. Mouth and throat: No oral thrush or mucositis. NECK: Supple. No cervical or supraclavicular lymphadenopathy. LUNGS: Clear to auscultation and percussion bilaterally. HEART: Regular rate and rhythm. No gallops, murmurs, clicks or rubs. ABDOMEN: Soft and lax. Scar of recent surgery is noted and healed well. No masses could be appreciated. EXTREMITIES: There is mild edema bilaterally. LYMPHATICS: No peripheral lymphadenopathy. NEUROLOGICAL: Conscious, alert and oriented times three. No focal motor or sensory deficits. PSYCHIATRIC: Mood and affect appear normal. SKIN: No skin rash, bruise or purpuric eruption. DIAGNOSTIC DATA CBC showed white count 8.2, hemoglobin 15.9, hematocrit 46.8, platelets 216,000. Chem panel totally normal except carbon dioxide 21, BUN 22, creatinine 1.1, blood sugar 117. AST 36. CA-125 is 18, which is normal and stable. CT abdomen and pelvis done on August 19, 2018, showed left hemipelvis nodule 1.2 cm, which does not change. There is not any evidence of metastatic or recurrent disease. ASSESSMENT 1. Stage IIIB (pT3b pN0 cM0) right ovarian endometrioid adenocarcinoma status post debulking surgery done May 08, 2014 followed by adjuvant chemotherapy with six cycles of adjuvant chemotherapy with carboplatin and Taxol received between June 08, 2014 through September 21, 2014. She is currently in complete remission. Her CA-125 is 18, which is normal and stable. Her CA-125 prior to her adjuvant chemotherapy was high at 74. CT abdomen and pelvis done on September 18, 2017 showed advanced steatosis but her repeat CT scan on August 19, 2018, did not show any evidence of recurrent or metastatic disease. The left hemipelvic nodule, 1.2 cm, is stable without any changes. I am planning to continue followup. I will see her again in six months with CBC, chem panel and CA-125. 2. 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 No further treatment is required. 3. Elevated liver enzymes most probably due to her fatty liver. 4. History of cerebrovascular accident. 5. History of migraine headache. PLAN 1. Continue followup. 2. Patient to return in six months with CBC, chem panel, CA-125. 3. Patient is to contact us for any new concern or complaints. MTDD
== END 2018-09-06 15:43 | disposition home or self-care (01) ==
LOC: ONC 11:16
PROVIDERS: ATTEND Internal Medicine Hematology
DX: Z85.43 Personal history of malignant neoplasm of ovary (principal); R94.5 Abnormal results of liver function studies; Z86.73 Personal history of transient ischemic attack (TIA), and cerebral infarction without residual deficits; Z92.21 Personal history of antineoplastic chemotherapy; I10 Essential (primary) hypertension; E78.00 Pure hypercholesterolemia, unspecified
CPT/HCPCS: 36415; 82040; 82247; 82310; 82374; 82435; 82565; 82947; 84075; 84132; 84155; 84295; 84450; 84460; 84520; 85025; 86304; 99212

== ENCOUNTER → 2018-08-26 | Outpatient (CLI) | payer BC ==
[~2018-08-26] MED LIST changes: +GADOBENATE 529MG/1ML 15ML VIAL IVP ONE; +LISI-374 PO
--- NOTE | 2018-08-26 14:19 | RADIOLOGY IMAGING REPORT ---
FACILITY: [facility] PATIENT NAME: Kristin Perera : 1955 MR: [id number] V: [id number] EXAM DATE: ORDERING PHYSICIAN: EUSEBIO VALENCIA TECHNOLOGIST: Location: [facility] Patient: Kristin Perera : 1955 Visit/Account:[id number] Date of Sevice: 08/26/2018 Examination: MR brain without and with contrast History: TIA, headache, dizziness Comparison: Head CT June 26, 2017 Technique: Multiplane MR imaging was performed through the brain without and with contrast. 15 cc IV multihance was administered. Findings: Diffusion: None Ventricles: Normal Midline shift: None Extraxial fluid: None Midline craniocervical structures: Normal Parenchyma: Multiple tiny bilateral chronic cerebellar infarcts. These are not visible on the compari son CT secondary to technique differences. Small unchanged chronic left lateral cerebellar infarct. U nchanged left temporal occipital encephalomalacia. A few scattered punctate white matter high signal foci. Enhancement: No pathologic enhancement Vascular flow voids: Normal Orbits and paranasal sinuses: Trace bilateral maxillary sinus fluid. Other: No significant additional finding. Impression: 1. No acute intracranial abnormality. 2. Small chronic unchanged left cerebellar infarct. 3. Multiple additional tiny chronic bilateral cerebellar infarcts are not visible on comparison CT se condary to technique differences. 4. Unchanged left temporal occipital encephalomalacia. 5. Trace bilateral maxillary sinus fluid. 6. Otherwise normal brain MR without and with contrast. Report Dictated By: Trav Anguiano MD at 08/26/2018 2:07 PM Report E-Signed By: Trav Anguiano MD at 08/26/2018 2:13 PM WSN:[email or web address]
== END ==
LOC: MRI 00:54
PROVIDERS: ATTEND Family Medicine
DX: R51 Headache (principal); R42 Dizziness and giddiness; G45.9 Transient cerebral ischemic attack, unspecified
CPT/HCPCS: 70553; A9577

== ENCOUNTER → 2018-09-30 | Outpatient (CLI) | payer BC ==
[~2018-09-30] MED LIST changes: -GADOBENATE 529MG/1ML 15ML VIAL IVP ONE; +LORA-630 PO
--- NOTE | 2018-09-30 10:22 | RADIOLOGY IMAGING REPORT ---
FACILITY: [facility] PATIENT NAME: Kristin Perera : 1955 MR: [id number] V: [id number] EXAM DATE: ORDERING PHYSICIAN: EUSEBIO VALENCIA TECHNOLOGIST: Location: [facility] Patient: Kristin Perera : 1955 Visit/Account:[id number] Date of Sevice: 09/30/2018 DEXA Scan Clinical history: Osteoporosis screening. Comparison: 09/28/2013. LUMBAR SPINE: Bone mineral density (BMD) measured in the lumbar spine correlates with a T-score of -1.5 and a Z-sco re of -0.9 which is osteopenia as defined by the World Health Organization. The corresponding risk o f fracture in the lumbar spine is increased compared with a young adult reference population. Lumbar spine bone density has increased by 9.2% compared to previous. Note that degenerative changes may f alsely increase bone density. LEFT FEMORAL NECK: Bone mineral density (BMD) measured in the femoral neck correlates with a T-score of -1.6 and a Z-sco re of -0.7 which is osteopenia as defined by the World Health Organization. Bone mineral density (BMD) measured in the femoral neck region is 0.822 g/cm2. LEFT TOTAL HIP: Total hip bone mineral density (BMD) correlates with a T-score of -1.1 and a Z-score of -0.6 which is osteopenia as defined by the World Health Organization. Total hip bone density has decreased by les s than 1% compared to previous. The corresponding risk of fracture in the hip is increased compared with a young adult reference [facility]u [facility]. IMPRESSION: 1. Lumbar spine: Osteopenia. Lumbar spine bone density has increased by 9.2% compared to previous. 2. Left femoral neck: Osteopenia. 3. Left femoral neck: Bone Mineral Density is 0.822 g/cm2. 4. Left total hip: Osteopenia. Total hip bone density has decreased by less than 1% compared to pr evious. FRAX WHO Fracture Risk Assessment Tool link: <http://www.shef.ac.uk/FRAX/tool.jsp?[email or web address]> PLEASE NOTE: 1) The World Health Organization defines low BMD as follows: T-score Normal > -1 Osteopenia < -1 and > -2.5 Osteoporosis < -2.5 without fractures Established osteoporosis < -2.5 with fractures 2) In general, you may wish to consider: Diagnosis Treatment Follow-up DEXA Normal BMD Prevention 2-3 years Osteopenia Prevention/therapy 1-2 years Osteoporosis Therapy Yearly 3) Fracture risk estimated from the T-score is more accurate for vertebral fractures (often spontane ous) than for hip fractures. Report Dictated By: Luis Reddy MD at 09/30/2018 10:11 AM Report E-Signed By: Luis Reddy MD at 09/30/2018 10:13 AM WSN:[email or web address]
--- NOTE | 2018-09-30 16:03 | RADIOLOGY IMAGING REPORT ---
FACILITY: [facility] PATIENT NAME: ELEANOR RITCHIE : [id number] MR: [id number] V: [id number] EXAM DATE: [id number] ORDERING PHYSICIAN: EUSEBIO VALENCIA TECHNOLOGIST: Sandi Zamarripa PROCEDURE: BILATERAL DIGITAL SCREENING MAMMOGRAM WITH CAD ASSISTED INTERPRETATION & 3D TOMOSYNTHESIS REASON FOR STUDY: Screening FAMILY HISTORY OF BREAST CANCER: BREAST PROCEDURES/TREATMENTS: COMPARISON: 06/26/17 back to 09/28/13 VIEWS OBTAINED: Bilateral 2D & 3D full field CC & MLO projections BREAST DENSITY: Breast parenchyma consists of scattered fibroglandular tissue. MAMMOGRAM FINDINGS: There are no developing masses or worrisome calcifications in either breast. DIAGNOSTIC CATEGORY 1--NEGATIVE. RECOMMENDATIONS: ROUTINE MAMMOGRAM AND CLINICAL EVALUATION. IMPRESSION: BIRADS 1: Negative. Dictated by: Kendrick Evans M.D. on 09/30/2018 at 12:17 Transcribed by: FRANCESCO on 09/30/2018 at 14:24 Approved by: Kendrick Evans M.D. on 09/30/2018 at 15:59 [facility]
== END ==
LOC: MAMO 00:37
PROVIDERS: ATTEND Family Medicine
DX: Z12.31 Encounter for screening mammogram for malignant neoplasm of breast (principal); M85.89 Other specified disorders of bone density and structure, multiple sites
CPT/HCPCS: 77063; 77067; 77080